=== PATIENT | female | born 1985 | race Caucasian/White ===

== ENCOUNTER 2017-08-30 00:05 | Emergency (ER) | payer MEDICAID | END 2017-08-30 01:40 | disposition home or self-care (01) | LOC: D.ER 00:05 | DX: T37.8X5A Adverse effect of other specified systemic anti-infectives and antiparasitics, initial encounter (principal); Y92.029 Unspecified place in mobile home as the place of occurrence of the external cause ==

== ENCOUNTER 2017-09-22 17:23 | Emergency (ER) | payer MEDICAID | END 2017-09-22 19:10 | disposition home or self-care (01) | LOC: D.ER 17:23 | DX: R51 Headache (principal); S16.1XXA Strain of muscle, fascia and tendon at neck level, initial encounter; W22.8XXA Striking against or struck by other objects, initial encounter; Y93.89 Activity, other specified; Y92.029 Unspecified place in mobile home as the place of occurrence of the external cause; M62.838 Other muscle spasm; M62.830 Muscle spasm of back ==

== ENCOUNTER 2018-01-21 20:47 | Emergency (ER) | payer MEDICAID | END 2018-01-21 22:51 | disposition home or self-care (01) | LOC: D.ER 20:47 | DX: G43.909 Migraine, unspecified, not intractable, without status migrainosus (principal) ==

== ENCOUNTER → 2018-01-31 13:48 | Outpatient (CLI) | payer MEDICAID | END | disposition home or self-care (01) | LOC: D.MRI 13:48 | DX: M54.12 Radiculopathy, cervical region (principal); G93.0 Cerebral cysts ==